=== PATIENT | female | born 1955 | race Caucasian/White ===

== ENCOUNTER 2019-03-30 23:19 | Inpatient (IN) ==
--- NOTE | 2019-03-31 00:29 | EKG Report ---
Test Performed on : 03/30/2019 11:26:32 PM Test Reason : syncope Blood Pressure : / mmHG Vent. Rate : 073 BPM Atrial Rate : 073 BPM P-R Int : 166 ms QRS Dur : 098 ms QT Int : 438 ms P-R-T Axes : 006 -21 071 degrees QTc Int : 482 ms Normal sinus rhythm. Low voltage QRS Borderline ECG When compared with ECG of 12-AUG-2013 14:11, Criteria for Septal infarct are no longer present QT has lengthened Unconfirmed Result
[2019-03-31] MEDS ORDERED: NS 1,000 ML IV ONE ×2 (01:04→01:41)
[2019-03-31] MEDS ORDERED: DUONEB (A & A) INH ONE (01:04)
[2019-03-31 01:18] LABS: BASO# 0.11 X1000 (0.0-0.2); BASO% 1.6 % (0.0-0.8); EOS# 0.07 X1000 (0.0-0.7); HEMATOCRIT 40.9 % (37.0-47.0); HEMOGLOBIN 13.3 g/dL (12.0-16.0); LYMPH# 2.45 X1000 (1.2-3.4); LYMPH% 35.2 % (20.5-51.1); MCHC 32.5 g/dL (33-37); MCV 79.9 FL (81-99); MONO# 0.73 X1000 (0.11-0.59); MONO% 10.5 % (1.7-9.3); MPV 11.2 FL (7.4-10.4); NEUT# 3.61 X1000 (1.4-6.5); NEUT% 51.7 % (42.2-75.2); PLT 260 X1000 (130-400); RBC 5.12 XMIL (4.2-5.4); RDW 13.7 % (11.5-14.5); WBC 6.97 X1000 (4.8-10.8)
[2019-03-31 01:26] LABS: ALB/GLOB RATIO 1.6; ALBUMIN 4.1 g/dL (3.5-5.0); CALCIUM 9.4 mg/dL (8.8-10.2); CREATININE 2.2 mg/dL (0.5-0.9); POTASSIUM 4.5 mmol/L (3.5-5.1); TOTAL BILIRUBIN 0.56 mg/dL (0.20-1.00); TOTAL PROTEIN 6.6 g/dL (6.3-8.3)
--- NOTE | 2019-03-31 03:40 | PROVIDER DOCUMENTATION ---
This chart was entered by Kendra Xiao Scribe, acting as scribe for Angelina Solomon MD. HPI-General Adult - General Chief Complaint: Syncope Stated Complaint: FALL, SOB Time Seen by Provider: 03/31/19 00:49 Source: patient Allergies/Adverse Reactions: Patient Allergies Allergy/AdvReac Type Severity Reaction Status Date / Time prochlorperazine edisylate * Allergy Severe ANAPHYLAXIS Verified 08/12/14 13:26 [From Compazine] prochlorperazine maleate * Allergy Severe ANAPHYLAXIS Verified 08/12/14 13:26 [From Compazine] Home Medications: Home Medication List Medication Instructions Recorded Confirmed Last Taken Type Albuterol [Albuterol Neb] 2.5 mg INH [id number] 08/12/14 03/31/19 08/12/14 History Furosemide [Lasix] 60 mg PO DAILY 08/12/14 03/31/19 08/12/14 History Gabapentin 1,200 mg PO TID 08/12/14 03/31/19 08/12/14 History Glipizide [Glipizide Xl] 10 mg PO DAILY 08/12/14 03/31/19 08/12/14 History Losartan/Hydrochlorothiazide 1 each PO DAILY 08/12/14 03/31/19 08/12/14 History [Losartan-Hctz 100-25 mg Tab] Meloxicam [Mobic] 15 mg PO DAILY 08/12/14 03/31/19 08/12/14 History Metformin HCl 1,000 mg PO BID 08/12/14 03/31/19 08/12/14 History Methocarbamol 500 mg PO BID 08/12/14 03/31/19 08/12/14 History Mometasone/Formoterol [Dulera 100 2 puff INH RTBID 08/12/14 03/31/19 08/12/14 History Mcg/5 Mcg Inhaler] Potassium Chloride [Klor-Con M20] 20 meq PO BID 08/12/14 03/31/19 08/12/14 History Sertraline HCl [Zoloft] 100 mg PO QAM 08/12/14 03/31/19 08/12/14 History Sertraline [Zoloft] 50 mg PO QHS 08/12/14 03/31/19 08/11/14 History Tiotropium [place] Inhaler 1 puff INH RTDAILY 08/12/14 03/31/19 08/12/14 History [Spiriva] Codeine Phosphate/Guaifenesin 5 ml PO Q6H PRN #120 liquid 03/29/19 03/31/19 Unknown Rx [Guaifenesin-Codeine Syrup] Ondansetron Odt [Zofran Odt] 4 mg PO Q6H PRN PRN #12 tab 03/29/19 03/31/19 Unknown Rx Oseltamivir [Tamiflu] 75 mg PO BID #10 cap 03/29/19 03/31/19 Unknown Rx - History of Present Illness -Gen Adult Nature of Presenting Problems: pt is a 63 yr old female presenting with complaint of body aches and weakness, pt reports dx as flue yesterday in ER, today weakness and body aches are worse, pt reports when she got up to get her medications tonight she felt extremely weak and slumped into the floor,pt denies any LOC, family assisted her up from floor, pt admits decreased oral intake x 5 days, fever/chills, headaches, cough and congestion. pt denies any LOC, no injury from episode. Location of Pain/Injury: reports: generalized Pain Radiation: reports: no radiation Quality of Pain: reports: aching Severity: reports: moderate Timing: reports: still present Context/Activities at Onset: reports: light activity Modifying Factors: improves with: nothing Associated Symptoms: reports: cough, fatigue, fever/chills, muscle aches, sinus congestion/drainage, shortness of breath, weakness, trouble walking (due to weakness). denies: back/neck pain, chest pain, dizziness, genitourinary problems, headaches, nausea, syncope Similar Symptoms Previously?: Yes Recently seen or treated by another doctor?: Yes Review of Systems - Adult - REVIEW OF SYSTEMS - ADULT Constitutional: reports: chills fatique. denies: fever Eyes: reports: no symptoms reported Ears, Nose, Mouth & Throat: reports: sinus problem. denies: ear pain, throat pain Cardiovascular: denies: chest pain, palpitations, syncope Respiratory: reports: cough, dyspnea on exertion, shortness of breath Gastrointestinal: reports: poor appetite. denies: abdominal pain, nausea, vomiting Genitourinary: denies: dysuria, frequency, flank pain Musculoskeletal: reports: muscle aches, muscle weakness Integumentary: reports: no symptoms reported Neurological: denies: dizziness/vertigo, headache/migraines, numbness, syncope Psychiatric: reports: no symptoms reported Endocrine: reports: no symptoms reported Hematologic/Lymphatic: reports: no symptoms reported Allergic/Immunologic: reports: no symptoms reported All Other Systems: Reviewed and Negative Past History - Adult - PAST MEDICAL HISTORY-ADULT Review of Records: reports: Old Records Reviewed, Nursing Assessment Review, Medications Reviewed, Social history reviewed & non-contributory. Major Childhood Illnesses: reports: denies history Cardiovascular: reports: HTN, hyperlipidemia Respiratory: reports: COPD Gastrointestinal: reports: denies history Obstetrical/Gynecological: reports: denies history Genitourinary: reports: denies history Musculoskeletal: reports: denies history Neurological: reports: denies history Psychiatric: reports: anxiety, depression Endocrine/Immune: reports: Diabetes Other Conditions: reports: denies history - PRIOR SURGERIES/PROCEDURES Surgical/Procedure History: reports: BTL, orthopedic (extremity) - IMMUNIZATION STATUS Childhood Immunizations: See Nurse Assessment Flu Vaccine: See Nurse Assessment - FAMILY HISTORY Family History: reviewed, not pertinent - SOCIAL HISTORY Smoking: denies Substance Use: denies Living Situation: family Physical Exam-General - PHYSICAL EXAM-ADULT Initial Vital Signs Reviewed: Yes - CONSTITUTIONAL General Appearance: alert, no apparent distress, other (fatigued) - EYES Eyes: PERRL/EOMI - HEAD, EARS, NOSE, MOUTH & THROAT HENMT: normocephalic/atraumatic, moist mucous membranes, normal ENT inspection - NECK Neck: non-tender, full range of motion, supple, normal inspection - RESPIRATORY Respiratory: chest non-tender, no pleuratic chest pain, no respiratory distress, no accessory muscle use, rhonchi, wheezing - CARDIOVASCULAR Cardiovascular: normal peripheral pulses, regular rate, rhythm, no edema - GASTROINTESTINAL (ABDOMEN) Abdominal Exam: normal bowel sounds, non tender, soft - LYMPHATIC Lymphatic: no adenopathy - MUSCULOSKELETAL Back Exam: normal inspection Extremity: normal range of motion, non-tender, normal inspection - SKIN Integumentary: normal color, normal turgor, warm/dry - NEUROLOGIC Neurologic: drum drier II-XII nml as tested, grossly normal, no motor/sensory deficits - PSYCHIATRIC Psych/Mental Status: normal mood/affect, normal thought content, normal thought process, oriented x 3 Progress - PLAN OF CARE/RESULTS Progress/Plan/Lab Results: Vital Signs - 8 hr 03/30/19 23:22 Temperature 97.2 F L Pulse Rate 70 Respiratory Rate 16 Blood Pressure 90/58 O2 Sat by Pulse Oximetry 96 Laboratory Results - last 24 hr 03/30/19 23:31 POC Glucose 121 H Orders Category Date Time Status EKG [EKG] Stat Ther 03/30/19 23:25 Draft syncope with known influenza and generalized weakness. Will further evaluate for causes including but not limited to dehydration, pna, acs, electrolyte imbalance, arrythmia Result Diagrams: 03/31/19 00:47 03/31/19 00:47 - REASSESSMENT Reassessment #1 Status: unchanged (continued weakness and requires assistance with standing. ARF with creatinine increase to 2.2 likely due to dehyration. hydrated with ns and will admit for further evaluation and treatment. Discussed case with Dr. Mcdonald, hospitalist, who will see and admit pt.) - EKG 1 Time of EKG reading by physician:: 23:30 EKG Read and Signed by:: Angelina Solomon EKG Interpretation (*Must complete 3 of following elements*): Abnormal Rate: 73 Rhythm: nsr [place]: normal QRS: other (low voltage QRS) CT Interval: normal ST Wave: normal - XRAY 1 XRAY Study: Chest Impression: Normal Departure - Departure Date of Disposition Decision: 03/31/19 Time of Disposition Decision: 03:39 DIAGNOSIS: Influenza A, Weakness Acute renal failure Qualifiers: Acute renal failure type: unspecified Qualified Code(s): N17.9 - Acute kidney failure, unspecified Syncope Qualifiers: Syncope type: unspecified Qualified Code(s): R55 - Syncope and collapse Disposition: ADMITTED INPATIENT 09 Certified Medical Emergency: Emergent Condition: Good - Critical Care Note This patient required my direct & personal management of CC.: No Attestation - Physician/ MATT Attestation Patient care was provided by Advanced Practice Provider:: No The physician spent face to face time with patient:: Yes Advanced Practice Provider documentation review:: Supervising physician onsite and consulted in the evaluation and care of this patient. The physician did have a face to face encounter with the patient. This chart was documented by the indicated darianibe, (Kendra Xiao, [employer]) and accurately reflects the services I performed and decisions made by me, Angelina Solomon MD, as attested by the provider's signature.
[2019-03-31] MEDS: NS 1,000 ML IV SCH ×3 (06:45→21:44)
[2019-03-31] MEDS ORDERED: NS 1,000 ML IV SCH (06:45)
[2019-03-31] MEDS ORDERED: DUONEB (A & A) INH PRN (07:15)
--- NOTE | 2019-03-31 07:39 | HISTORY AND PHYSICAL ---
CHIEF COMPLAINT: Weakness. HISTORY OF PRESENT ILLNESS: Ms. Valeria Vargas is a 63-year-old female, who has a history of hypertension, diabetes mellitus, and arthritis. She presents to the hospital because of complaints of body aches as well as weakness. The patient indicates that prior to coming to the hospital she actually did have an episode of brief loss of consciousness which was witnessed by her ex-. She was recently diagnosed with the flu virus, and she is currently taking Tamiflu. The patient was seen and evaluated in the ER. She was noted to have impaired renal function with a BUN and creatinine of 31 and 2.2. The patient is not aware of any kidney disease that she has to the best of her knowledge. She will now be admitted to the floor now for further management. PAST MEDICAL HISTORY: Diabetes mellitus, hypertension, arthritis, COPD, hyperlipidemia, and depression. SOCIAL HISTORY: No cigarette smoking. No alcohol or drug use. ALLERGIES: She is allergic to Compazine. FAMILY HISTORY: Positive for cancer. MEDICATIONS: Include the followin. Codeine/guaifenesin 5 mL q.6 hours. 2. Lasix 60 mg p.o. daily. 3. Gabapentin 1200 mg p.o. 3 times a day. 4. Glipizide 10 mg p.o. daily. 5. Losartan/hydrochlorothiazide 100/25 1 daily. 6. Meloxicam 15 g p.o. daily. 7. Metformin 1 g twice a day. 8. Methocarbamol 500 mg p.o. twice a day. 9. Dulera 2 puffs twice a day. 10. Ondansetron 4 mg p.o. q.6 hours p.r.n. 11. Tamiflu 75 mg p.o. twice a day. 12. Potassium chloride 20 mEq p.o. twice a day. 13. Spiriva inhaler 1 puff daily. 14. Albuterol nebs four times a day. 15. Sertraline 50 mg p.o. at bedtime. 16. Sertraline 100 mg p.o. once a day. PAST SURGICAL HISTORY: She has had surgery in both upper extremities as well as right ankle and also tubal ligation. REVIEW OF SYSTEMS: Constitutional: She has fever. PASTE MIXER: Headaches. Eyes: No blurred vision. ENT: No sinus problems or hearing loss. Cardiovascular: No chest pain. Respiratory: She has cough. GI: No nausea, vomiting, diarrhea, or abdominal pain. : No dysuria. Dermatology: No skin lesions. Hematology: No bleeding problems. Musculoskeletal: She has joint pains. Endocrinology: She has diabetes. No thyroid disease. Psychiatry: She has anxiety with depression. PHYSICAL EXAMINATION: VITAL SIGNS: Temperature 97.2 degrees, pulse 70, respiratory 16, blood pressure 98/58, and oxygen saturation. HEENT: She is atraumatic, normocephalic. She is anicteric. Extraocular movements intact. No oral lesions noted. NECK: No lymphadenopathy or thyromegaly. CARDIOVASCULAR: S1, S2. RESPIRATORY: There is evidence of rhonchi noted in both lung valadez. ABDOMEN: Soft and nontender. No masses felt. EXTREMITIES: No evidence of edema. CENTRAL NERVOUS SYSTEM: No obvious focal deficit noted. LABORATORY DATA: WBC 6.97, hematocrit 40.9, with a platelet count of 268,000. Sodium 135, potassium 4.5, chloride 93, bicarb 23, BUN 31, and creatinine 2.2. EKG shows normal sinus rhythm with low-voltage QRS. ASSESSMENT AND PLAN: 1. Influenza virus infection. The patient will be placed on Tamiflu. We adjusted for the patient's renal function. We will treat other flu-like symptoms symptomatically. 2. Syncope, probably related to flu. However, I will proceed and obtain CT scan of the brain without contrast, carotid Doppler study as well as 2D echo of the heart. 3. Probable acute kidney injury. Maintain patient on intravenous fluids. We will discontinue nephrotoxic medications. Follow up on renal function. 4. Hypertension. Optimize her blood pressure control. 5. Diabetes mellitus. Monitor blood sugar levels. Maintain patient on sliding scale insulin. Check hemoglobin A1c. Place patient on diabetic diet. 6. COPD. Maintain patient on nebulized bronchodilators as well as steroids. 7. Hyperlipidemia. Check lipid panel. 8. Depression. Continue SSIR. 9. Deep vein thrombosis prophylaxis. Lovenox. 10. Gastrointestinal prophylaxis. Proton pump inhibitor. cc: Kevin Mcdonald MD
--- NOTE | 2019-03-31 08:03 | Diag Imaging Result Doc PS360 ---
EXAM: CT HEAD W/O CONTRAST 03/31/2019 HISTORY: syncope TECHNIQUE: This exam was performed using automated exposure control, adjustment of mA or kV according to patient size, and/or use of iterative reconstruction technique. COMMENT: There is no evidence of mass effect, bleed, or abnormal extra-axial fluid collection. Compared to 01/31/2016 there has been no significant change. IMPRESSION: No evidence of acute intracranial disease. Electronically signed by Jaiden Barney 03/31/2019 8:01 AM
[2019-03-31] MEDS: DUONEB (A & A) INH SCH ×5 (08:05→23:13)
--- NOTE | 2019-03-31 08:24 | Diag Imaging Result Doc PS360 ---
EXAM: CHEST-1 VIEW 03/31/2019 HISTORY: cough TECHNIQUE: AP portable at 0113 COMMENT: There is a calcified granuloma in the left lower lobe. There is some ill-defined opacity in the medial portion of the right lower lobe which appears worse than on 03/29/2019. The inspiration is worse than on the previous study and otherwise considering differences in technique there has been no significant change. IMPRESSION: Atelectasis versus pneumonia left lower lobe. Electronically signed by Jaiden Barney 03/31/2019 8:21 AM
[2019-03-31] MEDS ORDERED: ALBUTEROL NEB INH SCH (09:00)
[2019-03-31] MEDS: ZOLOFT PO SCH (09:35)
[2019-03-31] MEDS: TAMIFLU LIQUID PO SCH (09:35)
[2019-03-31] MEDS: SOLU-MEDROL IV SCH ×2 (09:35→15:55)
[2019-03-31] MEDS: LEVAQUIN 250 MG/D5W 250 MG/50 ML IVPB IV SCH (09:35)
[2019-03-31] MEDS: PRILOSEC PO SCH (09:35)
[2019-03-31] MEDS: HUMULIN R SUBQ SCH ×4 (09:35→21:43)
--- NOTE | 2019-03-31 13:28 | PROGRESS NOTE ---
DATE: 03/31/2019 SUBJECTIVE: Ms. Vargas admitted early this morning with weakness. A 63-year-old with history of hypertension, diabetes mellitus, and arthritis, who presented to the hospital because of complaints of body aches as well as weakness. Patient indicates prior to coming to the hospital, she actually did have an episode of brief loss of consciousness which was witnessed by her ex- . She recently diagnosed with flu virus, and she was currently taking Tamiflu. The patient was seen and evaluated in the emergency room, and noted to have impaired renal function. BUN was 31 and creatinine 2.2. Not aware of any kidney disease. She had not been eating or drinking much so admission influenza virus infection. She is on Tamiflu with dehydration. Syncope, likely related to volume contraction. CT of the head of the brain without contrast. Carotid artery study were unremarkable. Probable acute kidney injury from prerenal. The patient getting IV fluids. She feels much better today. Hypertension. Diabetes mellitus. COPD. Hyperlipidemia. Depression. CURRENT ORDERS: 1. She is on Zoloft 50 mg a day. 2. Lovenox 40 mg subcutaneous daily. 3. Levaquin 250 mg IV daily. 4. Methylprednisone 30 mg IV q.8 hours. 5. Normal saline 100 mL an hour. 6. Prilosec 40 mg a day. 7. Tamiflu 30 mg a day. LABORATORY DATA: White blood cell count 6970, hematocrit 40, platelet count 260,000. Blood sugars 138, 131, and 141. cc: Bhanu Bryant MD
[2019-03-31] MEDS ORDERED: ZOLOFT PO SCH (21:00)
[2019-04-01] MEDS: SOLU-MEDROL IV SCH ×2 (00:22→08:57)
[2019-04-01] MEDS: HUMULIN R SUBQ SCH ×2 (00:23→06:51)
[2019-04-01] MEDS: DUONEB (A & A) INH SCH ×2 (05:17→07:45)
[2019-04-01 06:36] LABS: AGAP 14; BUN 14 mg/dL (8-22); CALCIUM 9.6 mg/dL (8.8-10.2); CHLORIDE 104 mmol/L (98-107); COSMO 291; CREATININE 0.8 mg/dL (0.5-0.9); ESTIMATED GFR > 60; GLUCOSE 195 mg/dL (70-104); MAGNESIUM 1.4 mg/dL (1.5-2.7); POTASSIUM 4.3 mmol/L (3.5-5.1); SODIUM 143 mmol/L (136-145); TCO2 25 mmol/L (25-35)
[2019-04-01 06:44] LABS: CHOLESTEROL 122 mg/dL (0-200); HDL 35 mg/dL (45-65); LDL 70 mg/dL; TRIGLYCERIDES 83 mg/dL (35-135); VLDL 17 mg/dL
[2019-04-01] MEDS: NS 1,000 ML IV SCH (06:50)
[2019-04-01] MEDS: PRILOSEC PO SCH (06:51)
--- NOTE | 2019-04-01 07:24 | DISCHARGE SUMMARY ---
ADMISSION DATE: 03/31/2019 DISCHARGE DATE: 04/01/2019 HISTORY OF PRESENT ILLNESS/HOSPITAL COURSE: This is a 63-year-old with a history of hypertension, diabetes mellitus type 2, osteoarthritis. She presented to the hospital with body aches, as well as weakness. The patient indicates prior to coming to the hospital, she actually did have an episode of brief loss of consciousness witnessed by her ex-. She was recently diagnosed with influenza virus and was taking Tamiflu. In the emergency room, she had a little bit impaired renal function, looked to be dehydrated. BUN was 31, creatinine 2.2, and she is not aware of having any kidney issues in the past, and she was admitted to the hospital, given some fluid, and felt much better after 24 hours and then wanted to go home the following morning and was eating well. Her creatinine came back down to 0.8, feels good, so we will discharge her home on 04/01/2019. DISCHARGE MEDICATIONS: She will go back to her home medicine. She is on albuterol 2.5 mg inhalation 4 times a day, codeine phosphate with guaifenesin 5 mL every 6 hours p.r.n., Lasix 60 mg p.o. daily, gabapentin 1200 mg p.o. t.i.d., glipizide 10 mg daily, losartan/hydrochlorothiazide 100/25 one a day, Mobic 15 mg daily, metformin 1000 mg p.o. b.i.d., methocarbamol 500 mg p.o. b.i.d., Dulera inhalation 2 puffs b.i.d., and she has finished out her Tamiflu. Zoloft 50 mg a day, I think that is at night, and 100 mg in the morning, and then Spiriva 1 puff inhalation daily. cc: Bhanu Bryant MD
[2019-04-01 08:23] VITALS: BP 202/87
[2019-04-01] MEDS ORDERED: FLU VACCINE IM ONE (08:52)
[2019-04-01] MEDS ORDERED: PNEUMOVAX 23 IM ONE (08:52)
[2019-04-01] MEDS: ZOLOFT PO SCH (08:57)
[2019-04-01] MEDS: LEVAQUIN 250 MG/D5W 250 MG/50 ML IVPB IV SCH (08:58)
[2019-04-01] MEDS ORDERED: LOVENOX SUBQ SCH (09:00)
[2019-04-01] MEDS ORDERED: COZAAR PO ONE (09:08)
[2019-04-01] MEDS: TAMIFLU LIQUID PO SCH (10:28)
--- NOTE | 2019-04-02 05:41 | ECHO REPORT ---
ORDER DATE: 03/31/2019 MEASUREMENTS: Septal thickness 1.1, left ventricular internal diameter end-diastole 4.3, posterior wall thickness 1.1, left ventricular internal diameter end-systole 2.6, aortic root 2.5, left atrium 3.4. SUMMARY: 1. Fair quality parasternal window with technically difficult apical window. Intravenous echo contrast agent Optison was utilized to enhance endocardial definition. 2. Aortic valve is trileaflet and opens normally on 2-dimensional images. The peak gradient across aortic valve is 15 mmHg. Mitral, tricuspid, and pulmonic valves are without evidence of structural abnormality, with trace mitral regurgitation and trace tricuspid regurgitation. The estimated systolic PA pressure by Doppler is 30 mmHg. The aortic root is normal in size. 3. Normal left ventricular dimensions demonstrated. The estimated left ventricular ejection fraction appears to be approximately 70%. No regional wall motion abnormalities evident. Doppler suggests grade 1 left ventricular diastolic dysfunction. The left atrium, right atrium, and right ventricle are normal size with grossly preserved right ventricular systolic function. 4. No pericardial effusion. 5. Inferior vena cava not well demonstrated. cc: MD Bhanu Ware MD
--- NOTE | 2019-04-04 20:15 | Carotid Study ---
DATE: 03/31/2019 [employer]: [employer] REQUESTING PHYSICIAN: Kevin Mcdonald MD INDICATIONS: Syncope. FINDINGS: Bilateral carotid arteries were visualized. There are no significant atherosclerotic changes noted bilaterally, and the vertebrals are antegrade bilaterally. IMPRESSION: Overall normal-appearing carotid duplex. cc: MD Kevin Waite MD
== END 2019-04-01 10:37 | disposition home or self-care (01) | DRG 684 ==
LOC: ED 23:19 → SUATTDRO 03-31 06:48 → 1N 03-31 06:48
PROVIDERS: ATTEND Emergency Medicine